=== PATIENT | male | born 1980 | race Caucasian/White ===

== ENCOUNTER 2018-08-15 16:21 | Inpatient (IN) ==
--- NOTE | 2018-08-15 17:28 | ED ---
HPI General Chief complaint: Chest Pain Stated complaint: Chest Pain Time Seen by Provider: 08/15/18 17:15 Source: patient Mode of arrival: ambulatory Limitations: no limitations History of Present Illness HPI narrative: 37-year-old male with history of IVDA, alcohol abuse, injects methadone into his right AC with last use about 2 hours prior to arrival, drinks about a half a pint of whiskey a day, last drink was yesterday evening, here for evaluation of nausea, vomiting, generalized malaise, chest pain. Symptoms started this morning. Patient has had about 6 episodes of nonbloody/ nonbilious emesis. He states that since vomiting this morning he has had substernal chest discomfort that he rates as mild, pressure, constant, nonradiating, no modifying factors. He feels jittery and nauseous. He is unsure if he has had a fever. No diarrhea. He occasionally has some left upper quadrant abdominal discomfort, currently no abdominal pain. No history of cardiopulmonary disease. Related Data Home Medications Medication Instructions Recorded Confirmed methadone 60 mg PO DAILY 08/15/18 08/15/18 Allergies Allergy/AdvReac Type Severity Reaction Status Date / Time penicillin G AdvReac Severe "vomiting" Verified 08/15/18 17:42 Review of Systems ROS: all other systems reviewed are negative [facility] Social History Social History Substance History: Past History Second Hand Smoke Exposure: Yes Smoking Status: Current every day smoker Tobacco Type: Cigarettes How Often Do You Have a Drink Containing Alcohol: 4 or more times a week Recent Travel in [facility] within the Last 8 Weeks: No Recent Out of Country Travel within the Last 8 Weeks: No Immunization History Tetanus Immunization: Unsure Exam Narrative Exam Narrative: GENERAL: Well-developed, well-nourished, calm, cooperative, tremulous, awake, alert, no apparent distress. SKIN: Focused skin assessment warm/dry. Right antecubital fossa with tract cordova without warmth erythema, no fluctuance or induration. No Janeway lesions , no Osler nodes, no splinter hemorrhages. HEAD: Atraumatic. Normocephalic. EYES: Pupils equal and round. No scleral icterus. No injection or drainage. ENT: No nasal bleeding or discharge. Mucous membranes pink and dry. NECK: Trachea midline. No JVD. CARDIOVASCULAR: Tachycardic, rate 100, regular. No murmur. RESPIRATORY: No accessory muscle use. Clear to auscultation. Breath sounds equal bilaterally. GASTROINTESTINAL: Abdomen soft, non-tender, nondistended. MUSCULOSKELETAL: No obvious deformities. No clubbing. No cyanosis. No edema. NEUROLOGICAL: Awake and alert. No obvious cranial nerve deficits. Motor grossly within normal limits. Normal speech. PSYCHIATRIC: Appears anxious; insight and judgment normal. Course Initial Documented Vital Signs Temperature 98.5 F 08/15/18 16:25 Pulse Rate 99 H 08/15/18 16:25 Respiratory Rate 18 08/15/18 16:25 Blood Pressure 190/98 H 08/15/18 16:25 Pulse Oximetry 96 08/15/18 16:25 Last Documented Vital Signs Temperature 98.5 F 08/15/18 16:25 Pulse Rate 87 08/15/18 16:48 Respiratory Rate 18 08/15/18 16:48 Blood Pressure 146/90 H 08/15/18 16:48 Pulse Oximetry 97 08/15/18 17:52 Medical Decision Making MDM Narrative Medical decision making narrative: Patient was initially evaluated by me in triage as part of the RMA process. Labs and imaging studies were ordered, and the patient will be brought back to a treatment room where the results will be followed by the PA. The patient was seen as part of the RMA process by my attending physician, Dr. Pugh. I, MICHAEL Giron, have reviewed Dr. Pugh's note, recommended plan of care and disposition. CBC unremarkable. Coags unremarkable. D-dimer 0.30. CMP is essentially unremarkable. Lactic acid 5.1. Patient is currently receiving 2 L normal saline bolus. Dr. Pugh called in regards to lactic acid and recommended vancomycin and Zosyn and admission for sepsis; antibiotics ordered. Troponin less than 0.02. BNP 12. Lipase 242. Serum alcohol 11. Chest x-ray with no acute cardiopulmonary disease identified. 183: Call placed for patient admission. 1848: I spoke with Dr. Mckeon and report given for patient admission. [facility] protocol ordered. Medical Screen Exam Complete: Yes Emergency Medical Condition: Yes Differential Diagnosis Differential Diagnosis: Sepsis, bacteremia, endocarditis, alcohol withdrawal, influenza, viral illness, metabolic abnormality Lab Data Result diagrams: 08/15/18 17:35 08/15/18 17:35 Lab Results 08/15/18 08/15/18 08/15/18 Range/Units 17:35 17:35 17:35 WBC 4.8 (4.0-11.0) th/mm3 RBC 4.17 L (4.50-5.90) mil/mm3 Hgb 16.2 (13.0-17.0) gm/dL Hct 44.9 (39.0-51.0) % MCV 107.6 H (80.0-100.0) fL MCH 38.9 H (27.0-34.0) pg MCHC 36.2 H (32.0-36.0) % RDW 15.3 (11.6-17.2) % Plt Count 265 (150-450) th/mm3 MPV 7.8 (7.0-11.0) fL Prelim Diff (Auto) Slide review pending Neut % (Auto) 69.7 (16.0-70.0) % Lymph % (Auto) 20.4 (9.0-44.0) % Traverse % (Auto) 9.0 H (0.0-8.0) % Eos % (Auto) 0.1 (0.0-4.0) % Baso % (Auto) 0.8 (0.0-2.0) % Neut # (Auto) 3.4 (1.8-7.7) th/mm3 Lymph # (Auto) 1.0 (1.0-4.8) th/mm3 Traverse # (Auto) 0.4 (0.0-0.9) th/mm3 Eos # (Auto) 0.0 (0.0-0.4) th/mm3 Baso # (Auto) 0.0 (0.0-0.2) th/mm3 WBC Differential . Diff Scan Auto diff confirmed Differential Comment . PT 11.7 H (9.8-11.6) sec INR 1.2 Ratio APTT 23.7 (23.4-31.7) sec D-Dimer Quant (PE/DVT) 0.30 (0.00-0.50) mg/L FEU Sodium 137 (136-145) meq/L Potassium 3.8 (3.5-5.1) meq/L Chloride 98 (98-107) meq/L Carbon Dioxide 25.9 (21.0-32.0) meq/L Anion Gap 13 (5-15) meq/L BUN 11 (7-18) mg/dL Creatinine 0.93 (0.60-1.30) mg/dL Estimated GFR Greater than 89 (>89) mL/min Random Glucose 120 H (74-106) mg/dL Lactic Acid (0.4-2.0) mmol/L Calcium 8.6 (8.5-10.1) mg/dL Total Bilirubin 0.6 (0.2-1.0) mg/dL AST 77 H (15-37) U/L ALT 71 (12-78) U/L Alkaline Phosphatase 125 H (45-117) U/L Total Creatine Kinase 68 (39-308) U/L Troponin I Less than 0.02 L (0.02-0.05) ng/mL B-Natriuretic Peptide (0-100) pg/mL Total Protein 8.1 (6.4-8.2) g/dL Albumin 4.1 (3.4-5.0) g/dL Lipase 242 (73-393) U/L Serum Alcohol 11 H (0-5) mg/dL 08/15/18 08/15/18 Range/Units 17:35 17:35 WBC (4.0-11.0) th/mm3 RBC (4.50-5.90) mil/mm3 Hgb (13.0-17.0) gm/dL Hct (39.0-51.0) % MCV (80.0-100.0) fL MCH (27.0-34.0) pg MCHC (32.0-36.0) % RDW (11.6-17.2) % Plt Count (150-450) th/mm3 MPV (7.0-11.0) fL Prelim Diff (Auto) Neut % (Auto) (16.0-70.0) % Lymph % (Auto) (9.0-44.0) % Traverse % (Auto) (0.0-8.0) % Eos % (Auto) (0.0-4.0) % Baso % (Auto) (0.0-2.0) % Neut # (Auto) (1.8-7.7) th/mm3 Lymph # (Auto) (1.0-4.8) th/mm3 Traverse # (Auto) (0.0-0.9) th/mm3 Eos # (Auto) (0.0-0.4) th/mm3 Baso # (Auto) (0.0-0.2) th/mm3 WBC Differential Diff Scan Differential Comment PT (9.8-11.6) sec INR Ratio APTT (23.4-31.7) sec D-Dimer Quant (PE/DVT) (0.00-0.50) mg/L FEU Sodium (136-145) meq/L Potassium (3.5-5.1) meq/L Chloride (98-107) meq/L Carbon Dioxide (21.0-32.0) meq/L Anion Gap (5-15) meq/L BUN (7-18) mg/dL Creatinine (0.60-1.30) mg/dL Estimated GFR (>89) mL/min Random Glucose (74-106) mg/dL Lactic Acid 5.1 H* (0.4-2.0) mmol/L Calcium (8.5-10.1) mg/dL Total Bilirubin (0.2-1.0) mg/dL AST (15-37) U/L ALT (12-78) U/L Alkaline Phosphatase (45-117) U/L Total Creatine Kinase (39-308) U/L Troponin I (0.02-0.05) ng/mL B-Natriuretic Peptide 12 (0-100) pg/mL Total Protein (6.4-8.2) g/dL Albumin (3.4-5.0) g/dL Lipase (73-393) U/L Serum Alcohol (0-5) mg/dL Imaging Data Radiologist's impression: Chest X-Ray 08/15/18 17:19 CONCLUSION: No acute cardiopulmonary disease identified. ECG Data Attestation: I personally reviewed and interpreted this ECG as follows: (Sinus tachycardia, rate 105, normal axis, normal intervals, no acute ischemic abnormality.) Discharge Plan Discharge Disposition Patient Disposition: ED Admit(ED Internal Use Only) Discharge Condition Condition: Stable Discharge Order Discharge Orders: ED Use Only Admit Order (Routine); Ordered 08/15/18 Ordered By: Sushila Echevarria Discharge Details Diagnosis: Sepsis, Drug abuse, IV, Alcohol abuse Physicians Team ED Provider: Ashutosh Pugh ED Midlevel Provider: Sushila Echevarria Primary Care Provider: UNKNOWN, Rxs /Orders / Referrals /Forms Prescriptions: No Action methadone 40 mg Tablet,Soluble 60 mg PO DAILY RF: 0 Discharge Instructions Patient Printed Instructions: Chest Pain (ED) Status ED Status: Admitted Patient
[2018-08-15] MEDS: Sod Chloride 0.9% Inj 1,000 ML IV.SIG SCH ×2 (17:48→17:53)
--- NOTE | 2018-08-15 17:51 | ECG ---
Date Performed: 08/15/2018 Time Performed: 16:32:00 PTAGE: 37 years EKG: SINUS TACHYCARDIA WITH SHORT FL INTERVAL POSSIBLE LEFT ATRIAL ENLARGEMENT NONSPECIFIC T-WAV E ABNORMALITY ABNORMAL RHYTHM ECG PREVIOUS TRACING : 01/03/2010 16.39 Compared to previous tracing, rate faster, QT shorter DOCTOR: Conrad Nicole Interpretating Date/Time 08/15/2018 17:51:09
[2018-08-15 17:53] LABS: Baso % (Auto) 0.8 % (0.0-2.0); Eos % (Auto) 0.1 % (0.0-4.0); Hematocrit 44.9 % (39.0-51.0); Hemoglobin 16.2 gm/dL (13.0-17.0); Lymph % (Auto) 20.4 % (9.0-44.0); Mean Corpuscular Hemoglobin 38.9 pg (27.0-34.0); Mean Corpuscular Volume 107.6 fL (80.0-100.0); Mean Platelet Volume 7.8 fL (7.0-11.0); Mono # (Auto) 0.4 th/mm3 (0.0-0.9); Neut # (Auto) 3.4 th/mm3 (1.8-7.7); Neut % (Auto) 69.7 % (16.0-70.0); Platelet Count 265 th/mm3 (150-450); Red Blood Count 4.17 mil/mm3 (4.50-5.90); Red Cell Distribution Width 15.3 % (11.6-17.2); White Blood Count 4.8 th/mm3 (4.0-11.0)
[2018-08-15 17:54] LABS: Mean Corpuscular HGB Conc 36.2 % (32.0-36.0)
[2018-08-15 18:07] LABS: Activated Partial Thrombo Time 23.7 sec (23.4-31.7); D-Dimer 0.3 mg/L FEU (0.00-0.50); INR 1.2 Ratio; Prothrombin Time 11.7 sec (9.8-11.6)
--- NOTE | 2018-08-15 18:10 | XR ---
EXAM DATE: 08/15/2018 6:06 PM EST AGE/SEX: 37 years / Male INDICATIONS: Chest pain. CLINICAL DATA: This is the patient's initial encounter. Patient reports that signs and symptoms have been present for 1 day and indicates a pain score of 5/10. MEDICAL/SURGICAL HISTORY: None. Appendectomy. Tonsillectomy. COMPARISON: No prior exams available for comparison. FINDINGS: Single AP view the chest. The lungs are clear. Cardiomediastinal silhouette within normal limits. No evidence of pleural effusion or pneumothorax. CONCLUSION: No acute cardiopulmonary disease identified. Electronically signed by: Hunter Antunez MD Board Certified Radiologist 08/15/2018 6:08 PM EST
[2018-08-15 18:13] LABS: Alanine Aminotransferase 71 U/L (12-78); Albumin 4.1 g/dL (3.4-5.0); Anion Gap 13 meq/L (5-15); Aspartate Aminotransferase 77 U/L (15-37); Blood Urea Nitrogen 11 mg/dL (7-18); Calcium 8.6 mg/dL (8.5-10.1); Carbon Dioxide 25.9 meq/L (21.0-32.0); Chloride 98 meq/L (98-107); Glomerular Filtration Rate Greater Than 89 mL/min (>89); Glucose,Random 120 mg/dL (74-106); Lipase 242 U/L (73-393); Potassium 3.8 meq/L (3.5-5.1); Sodium 137 meq/L (136-145)
[2018-08-15 18:17] LABS: Alkaline Phosphatase 125 U/L (45-117); Total Protein 8.1 g/dL (6.4-8.2)
[2018-08-15 18:20] LABS: Alcohol 11 mg/dL (0-5); Creatine Kinase 68 U/L (39-308)
[2018-08-15] MEDS ORDERED: Vancomycin Inj 1,000 MG in Sodium Chlor 0.9% Inj 250 ML IV.SIG ONE (18:31)
[2018-08-15] MEDS ORDERED: Piperacil/Tazo 3.375 GM Premix 3.375 GM/50 ML PIGGYBACK IV.SIG ONE (18:31)
[2018-08-15] MEDS ORDERED: Haloperidol Inj 5 MG/ML Ampul IV.PUSH PRN (18:45)
[2018-08-15] MEDS ORDERED: Vancomycin Consult Pharmacy 1 EACH OTHER SCH (22:15)
--- NOTE | 2018-08-15 22:16 | P.HP ---
History of Present Illness [place] [facility] [place] Primary Care Physician: UNKNOWN Chief Complaint: chest pain nausea History of Present Illness: 37-year-old male with history of IVDA, alcohol abuse, injects methadone into his right AC with last use about 2 hours prior to arrival, drinks about a half a pint of whiskey a day, last drink was yesterday evening, here for evaluation of nausea, vomiting, generalized malaise, chest pain. Symptoms started this morning. Patient has had about 6 episodes of nonbloody/nonbilious emesis. He states that since vomiting this morning he has had substernal chest discomfort that he rates as mild, pressure, constant, nonradiating, no modifying factors. He feels jittery and nauseous. He is unsure if he has had a fever. No diarrhea. He occasionally has some left upper quadrant abdominal discomfort, currently no abdominal pain. No history of cardiopulmonary disease. In er found to have elevated lactic acid level and with hx IVDA admitted started on vancomycin follow up labs,CAWA and sepsis protocol. - Diagnosis (1) Sepsis (2) Drug abuse, IV (3) Alcohol abuse Inpatient Certification: I certify that the inpatient services were ordered in accordance with Medicare regulations governing the order. This includes certification that hospital inpatient services are reasonable and necessary and in the case of services not specified as inpatient-only under 42 CFR 419.22(n), that they are appropriately provided as inpatient services in accordance to with the 2-midnight benchmark under 43 CFR 412.3(e) Review of Systems All other systems reviewed negative except as stated in HPI PMFSH - History History Provided By: Patient - Medical History Medical History: Medical History (Last Reviewed 08/15/18 @ 22:11 by Loco Mckeon MD) Hepatitis C - Surgical History Surgical History: Surgical History (Last Reviewed 08/15/18 @ 22:11 by Loco Mckeon MD) History of appendectomy Hx of tonsillectomy - Tobacco History Second Hand Smoke Exposure: Yes Tobacco Use In Past 30 Days: Yes Smoking Status: Current every day smoker Tobacco Type: Cigarettes - Alcohol History How Often Do You Have a Drink Containing Alcohol: 4 or more times a week - Substance Use History Substance History: Active Abuse - Travel History Recent Travel in the [place] Within the Last 8 Weeks: No Recent Travel Out of the Country Within the Last 8 Weeks: No - Immunization History Tetanus Immunization: >5 Years Hx Influenza Vaccine This Season: No Medications and Allergies Active Medications: Active Medications Flumazenil (Romazicon Inj) 0.2 mg IV.PUSH Q1M PRN PRN Reason: OVERSEDATION Haloperidol Lactate (Haldol Inj) 1 mg IV.PUSH Q15M PRN PRN Reason: for severe agitation Pharmacy Profile Note (Vancomycin Consult Pharmacy) 0 mls @ 0 mls/hr OTHER UNSCH JOHN Lorazepam (Ativan Inj) 1 mg IM Q4H PRN PRN Reason: for CIWA 8-10 Lorazepam (Ativan Inj) 2 mg IM Q2H PRN PRN Reason: for CIWA 11-14 Lorazepam (Ativan Inj) 2 mg IV.PUSH Q15M PRN PRN Reason: for CIWA > 20 Lorazepam (Ativan Inj) 2 mg IV.PUSH Q1H PRN PRN Reason: for CIWA 15-20 Lorazepam (Ativan) 1 mg PO Q4H PRN PRN Reason: for CIWA 8-10 Lorazepam (Ativan) 2 mg PO Q2H PRN PRN Reason: for CIWA 11-14 Sodium Chloride (Ns Flush) 2 ml IV.FLUSH UNSCH PRN PRN Reason: FLUSH AFTER USING IV ACCESS Allergies Allergy/AdvReac Type Severity Reaction Status Date / Time penicillin G AdvReac Severe "vomiting" Verified 08/15/18 17:42 Home Medications Medication Instructions Recorded Confirmed Type methadone 60 mg PO DAILY 08/15/18 08/15/18 History Exam Vital signs: Vital Signs 08/15/18 16:25 08/15/18 16:44 08/15/18 16:48 Temperature 98.5 F Pulse Rate 99 H 87 Respiratory Rate 18 20 18 Blood Pressure 190/98 H 146/90 H Pulse Oximetry 96 97 08/15/18 17:29 08/15/18 17:52 08/15/18 19:20 Temperature 98.6 F Pulse Rate 85 Respiratory Rate 16 Blood Pressure 149/87 H Pulse Oximetry 96 97 98 08/15/18 20:45 Temperature 98.3 F Pulse Rate 85 Respiratory Rate 18 Blood Pressure 147/97 H Pulse Oximetry Intake & Output 08/15/18 08/15/18 08/16/18 06:59 18:59 06:59 Intake Total 1999 350 / 350 Balance 1999 350 / 350 Weight 72.575 kg 74.4 kg Intake: IV 1999 350 / 350 Zosyn 3.375 GM Premix 3.375 gm 100 / 100 In 50 ml @ 100 mls/hr IV.SIG ONCE ONE Rx#:[id number] NS Inj 1,000 ML @ 2000 mls/hr 1999 IV.SIG Q30M JOHN Rx#:[id number] Vancomycin Inj 1,000 MG In NS 250 / 250 Inj 250 ML @ 250 mls/hr IV.SIG ONCE ONE Rx#:[id number] Other: Weight On Admission 74.4 kg Narrative: GENERAL: slight tremor SKIN: Warm and dry.track cordova rt antecubital fossa HEAD: Normocephalic. EYES: No scleral icterus. No injection or drainage. NECK: Supple, trachea midline. No JVD or lymphadenopathy. CARDIOVASCULAR: Regular rate and rhythm without murmurs, gallops, or rubs. RESPIRATORY: Breath sounds equal bilaterally. No accessory muscle use. GASTROINTESTINAL: Abdomen soft, non-tender, nondistended. MUSCULOSKELETAL: No cyanosis, or edema. BACK: Nontender without obvious deformity. No CVA tenderness. Results - Labs CBC & Chem 7: 08/15/18 17:35 08/15/18 17:35 Labs: Laboratory Results - last 24 hr 08/15/18 08/15/18 08/15/18 17:35 17:35 17:35 WBC 4.8 RBC 4.17 L Hgb 16.2 Hct 44.9 MCV 107.6 H MCH 38.9 H MCHC 36.2 H RDW 15.3 Plt Count 265 MPV 7.8 Prelim Diff (Auto) Slide review pending Neut % (Auto) 69.7 Lymph % (Auto) 20.4 Chaves % (Auto) 9.0 H Eos % (Auto) 0.1 Baso % (Auto) 0.8 Neut # (Auto) 3.4 Lymph # (Auto) 1.0 [place]aves # (Auto) 0.4 Eos # (Auto) 0.0 Baso # (Auto) 0.0 WBC Differential . Diff Scan Auto diff confirmed Differential Comment . PT 11.7 H INR 1.2 APTT 23.7 D-Dimer Quant (PE/DVT) 0.30 Sodium 137 Potassium 3.8 Chloride 98 Carbon Dioxide 25.9 Anion Gap 13 BUN 11 Creatinine 0.93 Estimated GFR Greater than 89 Random Glucose 120 H Lactic Acid Calcium 8.6 Total Bilirubin 0.6 AST 77 H ALT 71 Alkaline Phosphatase 125 H Total Creatine Kinase 68 Troponin I Less than 0.02 L B-Natriuretic Peptide Total Protein 8.1 Albumin 4.1 Lipase 242 Serum Alcohol 11 H 08/15/18 08/15/18 08/15/18 17:35 17:35 19:35 WBC RBC Hgb Hct MCV MCH MCHC RDW Plt Count MPV Prelim Diff (Auto) Neut % (Auto) Lymph % (Auto) Chaves % (Auto) Eos % (Auto) Baso % (Auto) Neut # (Auto) Lymph # (Auto) [place]aves # (Auto) Eos # (Auto) Baso # (Auto) WBC Differential Diff Scan Differential Comment PT INR APTT D-Dimer Quant (PE/DVT) Sodium Potassium Chloride Carbon Dioxide Anion Gap BUN Creatinine Estimated GFR Random Glucose Lactic Acid 5.1 H* 2.0 Calcium Total Bilirubin AST ALT Alkaline Phosphatase Total Creatine Kinase Troponin I B-Natriuretic Peptide 12 Total Protein Albumin Lipase Serum Alcohol - Imaging Impressions Chest X-Ray 08/15/18 17:19 CONCLUSION: No acute cardiopulmonary disease identified. Caprini VTE Risk Assessment Caprini VTE Risk Assessment: Moderate/High Risk (score >= 2) Caprini Risk Assessment Model: Point Value = 1 Point Value = 2 Point Value = 3 Point Value = 5 Age 41-60 Minor surgery BMI > 25 kg/m2 Swollen legs Varicose veins or History of unexplained or recurrent spontaneous Oral contraceptives or hormone replacement Sepsis (< 1 month) Serious lung disease, including pneumonia (< 1 month) Abnormal pulmonary function Acute myocardial infarction Congestive heart failure (< 1 month) History of inflammatory bowel disease Medical patient at bed rest Age 61-74 Arthroscopic surgery Major open surgery (> 45 min) Laparoscopic surgery (> 45 min) Malignancy Confined to bed (> 72 hours) Immobilizing plaster cast Central venous access Age >= 75 History of VTE Family history of VTE Factor V Leiden Prothrombin [id number] Lupus anticoagulant Anticardiolipin antibodies Elevated serum homocysteine Heparin-induced thrombocytopenia Other congenital or acquired thrombophilia Stroke (< 1 month) Elective arthroplasty Hip, pelvis, or leg fracture Acute spinal cord injury (< 1 month) Prophylaxis Regimen: Total Risk Factor Score Risk Level Prophylaxis Regimen 0-1 Low Early ambulation 2 Moderate Order ONE of the following: *Sequential Compression Device (SCD) *Heparin 5000 units SQ BID 3-4 Higher Order ONE of the following medications: *Heparin 5000 units SQ TID *Enoxaparin/Lovenox 40 mg SQ daily (WT < 150 kg, CrCl > 30 mL/min) *Enoxaparin/Lovenox 30 mg SQ daily (WT < 150 kg, CrCl > 10-29 mL/min) *Enoxaparin/Lovenox 30 mg SQ BID (WT < 150 kg, CrCl > 30 mL/min) AND/OR *Sequential Compression Device (SCD) 5 or more Highest Order ONE of the following medications: *Heparin 5000 units SQ TID (Preferred with Epidurals) *Enoxaparin/Lovenox 40 mg SQ daily (WT < 150 kg, CrCl > 30 mL/min) *Enoxaparin/Lovenox 30 mg SQ daily (WT < 150 kg, CrCl > 10-29 mL/min) *Enoxaparin/Lovenox 30 mg SQ BID (WT < 150 kg, CrCl > 30 mL/min) AND *Sequential Compression Device (SCD) Assessment and Plan - Assessment (1) Sepsis Code(s): A41.9 - Sepsis, unspecified organism Status: Acute Plan: sepsis with hx IVDA started on vancomycin sepsis protocol follow up labs (2) Drug abuse, IV Code(s): F19.10 - Other psychoactive substance abuse, uncomplicated Status: Acute Plan: as above shot methadone will hold po may need PSY evaluation has seen patient multiple times in past (3) Alcohol abuse Code(s): F10.10 - Alcohol abuse, uncomplicated Status: Acute Plan: CAWA protocol - Plan further plan as case develops Code Status: full Discussed Condition With: patient (1) Sepsis Qualifiers: Sepsis type: sepsis due to unspecified organism Qualified Code(s): A41.9 - Sepsis, unspecified organism
[2018-08-15] MEDS: LORazepam 1 MG Tablet PO PRN (22:50)
[2018-08-16] MEDS: Vancomycin Inj 1,250 MG in Sodium Chlor 0.9% Inj 250 ML IV.SIG SCH ×2 (01:17→10:59)
[2018-08-16 01:47] LABS: Bilirubin,Urine Negative (Negative); Clarity,Urine Clear (Clear); Color,Urine Straw (Yellw/Straw); Glucose,Urine (UA) Negative (Negative); Leukocyte Esterase,Urine Negative (Negative); Mucus,Urine Few /lpf (Occasional); Nitrite,Urine Negative (Negative); Specific Gravity,Urine 1.012 (1.002-1.035)
[2018-08-16 01:51] LABS: Amphetamine Screen,Urine Neg (Neg); Barbiturate Screen,Urine Neg (Neg); Cannabinoid Screen,Urine Neg (Neg); Cocaine Screen,Urine Neg (Neg)
[2018-08-16 01:53] LABS: Opiate Screen,Urine Neg (Neg)
[2018-08-16] MEDS: LORazepam 1 MG Tablet PO PRN ×3 (02:30→10:59)
[2018-08-16 08:41] VITALS: BP 129/88; PULSE 94; RESP 18; TEMP 97.3; O2SAT 97
[2018-08-16 09:58] LABS: Eos # (Auto) 0.1 th/mm3 (0.0-0.4); Eos % (Auto) 2.5 % (0.0-4.0); Hematocrit 41.9 % (39.0-51.0); Hemoglobin 14.8 gm/dL (13.0-17.0); Lymph # (Auto) 1.3 th/mm3 (1.0-4.8); Lymph % (Auto) 29.1 % (9.0-44.0); Mean Corpuscular HGB Conc 35.3 % (32.0-36.0); Mean Corpuscular Hemoglobin 38.7 pg (27.0-34.0); Mean Corpuscular Volume 109.8 fL (80.0-100.0); Mean Platelet Volume 7.9 fL (7.0-11.0); Mono # (Auto) 0.5 th/mm3 (0.0-0.9); Mono % (Auto) 11.9 % (0.0-8.0); Neut # (Auto) 2.4 th/mm3 (1.8-7.7); Neut % (Auto) 55.5 % (16.0-70.0); Platelet Count 187 th/mm3 (150-450); Red Blood Count 3.82 mil/mm3 (4.50-5.90); Red Cell Distribution Width 15.4 % (11.6-17.2); White Blood Count 4.4 th/mm3 (4.0-11.0)
[2018-08-16] MEDS ORDERED: Pantoprazole Inj 40 MG Vial IV.PUSH SCH (10:00)
[2018-08-16 10:18] LABS: Anion Gap 9 meq/L (5-15); Blood Urea Nitrogen 7 mg/dL (7-18); Calcium 8.3 mg/dL (8.5-10.1); Carbon Dioxide 27.6 meq/L (21.0-32.0); Chloride 103 meq/L (98-107); Glomerular Filtration Rate Greater Than 89 mL/min (>89); Glucose,Random 135 mg/dL (74-106); Sodium 140 meq/L (136-145)
[2018-08-16] MEDS ORDERED: Potassium Bicarbonate 25 MEQ Effervescent Tablet PO ONE (10:31)
--- NOTE | 2018-08-16 10:38 | P.PNIM ---
Subjective Interval history: pt still nauseated and says shaky. want rehab Physical Exam Vital signs: Last Vital Signs Temp 97.3 F L 08/16/18 08:00 Pulse 94 H 08/16/18 08:00 Resp 18 08/16/18 08:00 BP 129/88 08/16/18 08:00 Pulse Ox 97 08/16/18 10:30 Narrative: heart reg lung cta abd s/nt ext no edema right AC track cordova not infected Results Labs CBC & Chem 7: 08/16/18 09:30 08/16/18 09:30 Assessment and Plan Assessment (1) Drug abuse, IV: Code(s): F19.10 - Other psychoactive substance abuse, uncomplicated Status: Acute (2) Alcohol abuse: Code(s): F10.10 - Alcohol abuse, uncomplicated Status: Acute Plan 1. Pt with IVDU with methadone for years, etoh abuse presents to ED with shaking and persistent n/v cont ivf replace kcl iv antinausea meds start iv ppi diet as tolerated given iv abx last night. observe cx's echo to eval valve CIWA protocol. says he is trying to get in to drug/etoh program Progress Note: Quality VTE Deep Vein Thrombosis/Pulmonary Embolism Present on Admission: No
[2018-08-16] MEDS ORDERED: Pharmacy Ordered Lab Info OTHER ONE (17:45)
== END 2018-08-16 14:44 | disposition left against medical advice (07) | DRG 872 ==
LOC: NEPB 16:21 → NEDA 18:54 → N04 20:48
PROVIDERS: ADMIT Hospitalist; ATTEND Hospitalist
CPT/HCPCS: 71010; 71045; 80048; 80053; 80307; 81001; 82550; 83520; 83605; 83690; 83880; 84484; 85025; 85379; 85610; 85730; 87040; 87275; 87276; 87804; 90761; 90774; 90775; 90784; 93005; 96361; 96374; 96375; 99285; C8952; C9113; J2060; J2405; J2543; J3370; J7030; J7050